=== PATIENT | male | born 1995 | race Caucasian/White ===

== ENCOUNTER 2018-02-22 14:07 | Emergency (ER) | payer MEDICAID ==
[~2018-02-22] VITALS: Ht 188 cm; Wt 118.0 kg
[~2018-02-22 14:07] MED LIST: ALBUTEROL
[2018-02-22 19:16] VITALS: BP 122/84
== END 2018-02-22 19:17 | disposition home or self-care (01) ==
LOC: ER 15:29
DX: S96.911A Strain of unspecified muscle and tendon at ankle and foot level, right foot, initial encounter (principal); S90.31XA Contusion of right foot, initial encounter; M25.561 Pain in right knee; F17.200 Nicotine dependence, unspecified, uncomplicated; X50.1XXA Overexertion from prolonged static or awkward postures, initial encounter; Y93.89 Activity, other specified; Y92.89 Other specified places as the place of occurrence of the external cause; Y99.8 Other external cause status
CPT/HCPCS: 73600; 73630; 99284